=== PATIENT | male | born 1995 | race Caucasian/White ===

== ENCOUNTER 2019-02-06 08:26 | Day surgery (SDC) | payer BC ==
[~2019-02-06] VITALS: Ht 165.1 cm; Wt 99.8 kg
[~2019-02-06 08:26] MED LIST: CEFAZOLIN SOD 2 GM in D5W 50 ML IV ONE
[2019-02-06] MEDS ORDERED: BUPIVACAINE /EPINEPHRINE/PF 0.5% 30 ML VIAL INJ ONE (10:30)
[2019-02-06] MEDS ORDERED: SEVOFLURANE 15 MIN GAS INH ONE (10:30)
[2019-02-06] MEDS ORDERED: ROCURONIUM BROMIDE 10 MG/ML (ZEMURON) IV ONE (10:30)
[2019-02-06] MEDS ORDERED: MIDAZOLAM HCL 5 MG/5 ML VIAL IVP ONE (10:30)
[2019-02-06] MEDS ORDERED: fentaNYL CITRATE/PF 100 MCG/2 ML AMP IVP ONE (10:30)
[2019-02-06] MEDS ORDERED: LR 1,000 ML IV.SOLN IV ONE (10:30)
[2019-02-06] MEDS ORDERED: POLYMYXIN 500,000/BACIT.10,000 UNITS in NS IRR 1 L IR ONE (11:03)
[2019-02-06] MEDS ORDERED: KETOROLAC TROMETHAMINE 30 MG VIAL IVP PRN (11:15)
[2019-02-06] MEDS ORDERED: ONDANSETRON HCL 4 MG/2 ML VIAL IVP PRN ×2 (11:15→13:30)
[2019-02-06] MEDS ORDERED: fentaNYL CITRATE/PF 100 MCG/2 ML AMP IVP PRN ×2 (11:15)
[2019-02-06] MEDS ORDERED: DOCUSATE SODIUM 100 MG CAPSULE PO ONE (13:30)
[2019-02-06] MEDS ORDERED: HYDROcodone/ACETAMIN 5-325 MG TAB (NORCO/ VICODIN) PO PRN (13:30)
[2019-02-06] MEDS ORDERED: fentaNYL CITRATE/PF 100 MCG/2 ML AMP ONE (14:05)
[2019-02-06] MEDS ORDERED: HYDROcodone/ACETAMIN 5-325 MG TAB (NORCO/ VICODIN) ONE (15:15)
--- NOTE | 2019-02-06 17:40 | NUR ---
Post operative notes From out patient surgery after post robotic assisted laparoscopic inguinal hernia with mesh under General anesthesia, alert/oriented x4 right inguinal feel sore dressing intact no active bleeding , vitals sign monitored, safety/fall precaution initiated, pain management discussed with patient verbalized understanding. Addendum: 02/06/19 at 1813 by Jessi Degroot RN Endorsed patient to JOS[facility] Deleon
[2019-02-06 17:53] VITALS: BP_SYST 116
[2019-02-06 18:14] VITALS: BP_SYST 112
--- NOTE | 2019-02-06 18:30 | NUR ---
NOTES PT WAS CHECKED AND AWAKE ALERT INFUSING ON THE R HAND. NO INFILTRATION OTED. DRESSING ON THE ABD 3 SITES AND NO BLEEDING OTED. DR RICE AT BEDSIDE. NO C.O PAIN AT THIS TIME.
[2019-02-06 20:00] VITALS: BP_SYST 108
--- NOTE | 2019-02-06 20:00 | NUR ---
RECEIVED PT IN BED V/S AND ASSESSMENT DONE SAME STABLE ,IV FLUID COMPLETE H/P.ABDOMINAL BAND AID IN PLACE .MEDICATED FOR PAIN ,RESTING IN BED WITH FAMILY AT BEDSIDE.NO DISTRESS NOTED AT THIS TIME.
[2019-02-06] MEDS: DOCUSATE SODIUM 100 MG CAPSULE PO SCH (21:09)
[2019-02-06] MEDS: HYDROcodone/ACETAMIN 5-325 MG TAB (NORCO/ VICODIN) PO PRN (21:11)
--- NOTE | 2019-02-07 | NUR ---
PT RESTING IN NO DISTRESS AT THIS TIME
--- NOTE | 2019-02-07 04:00 | NUR ---
PT IN NO DISTRESS AT THIS TIME
[2019-02-07] MEDS: HYDROcodone/ACETAMIN 5-325 MG TAB (NORCO/ VICODIN) PO PRN (05:40)
--- NOTE | 2019-02-07 07:35 | NUR ---
opening note patient is resting in bed, alert and oriented, at the bedside, educated on all light system and plan of care, patient verbalized understanding, on 2L nasal cannula, patient agreed to try to see how he tolerated without the oxygen, verbalized understanding that he will call if he feels like he needs it back on, no signs of distress at this time, bed in lowest position, two side rails up, bed alarm on, call light within reach, patient ambulates steady to the bathroom, fall/safety precautions in place.
[2019-02-07 08:00] VITALS: BP_SYST 101
[2019-02-07] MEDS: DOCUSATE SODIUM 100 MG CAPSULE PO SCH (08:26)
[2019-02-07 09:17] VITALS: BP_SYST 101
== END 2019-02-07 09:45 | disposition home or self-care (01) ==
LOC: SDS 08:26 → STU 08:28 → SMU 17:47 → SDS 02-07 09:45
PROVIDERS: ATTEND Surgery
DX: K40.90 Unilateral inguinal hernia, without obstruction or gangrene, not specified as recurrent (principal); D17.6 Benign lipomatous neoplasm of spermatic cord
CPT/HCPCS: 49650; 88304; C1727; C1781; J0690; J2250; J3010; J3490; J7060; J7120; S2900; 88302